=== PATIENT | female | born 1990 | race Caucasian/White ===

== ENCOUNTER → 2020-11-21 10:47 | Outpatient (CLI) | payer OTHER, SELFPAY ==
--- NOTE | ~2020-11-21 | US_ITS ---
EXAMINATION: US OB follow up DATE: 11/21/2020 11:09 INDICATION: Estimated size is less than expected for estimated gestational age during third [facility] . TECHNIQUE: Real-time ultrasound of the pelvis was performed. The interpreting radiologist was not pre sent for the study. COMPARISON: None. FINDINGS: There is a single living fetus in vertex presentation. The placenta is anterior and not low-lying. F etal heart rate is 134 beats per minute (bpm). The amniotic fluid index is 13.0 cm, which is normal (5th%-95%: 8.6-24.2 cm at 32 weeks estimated gestational age). The following biometric data were obtained: BPD: 8.2 cm -> 32 weeks 6 days Head circumference: 30.0 cm -> 33 weeks 1 days Abdominal circumference: 27.5 cm -> 31 weeks 4 days Femur length: 6.0 cm -> 31 weeks 3 days These measurements are concordant. Head circumference to abdominal circumference ratio: 1.09 (normal range 0.96-1.13). Estimated weight: 1831 g (+/-) 275 g. or 4 lbs. 1 oz. (+/-) 10 oz. IMPRESSION: 1. Single living fetus in vertex presentation with heart rate of 134 bpm. 2. Gestational age by ultrasound of 32 weeks 2 day(s) +/- 2 week(s) 2 day(s) with ultrasound estimate d date of delivery (GARCIA) of 01/14/2021. Estimated weight is 24th percentile by Hadlock criteria w hen 01/14/2021 is used as the GARCIA. Please correlate with clinical information or earlier ultrasounds fo r most accurate GARCIA. 3. Normal amniotic fluid index of 13.0 cm. Reviewed, dictated and finalized at location A. THERAPIST IMPRESSION: 1. Single living fetus in vertex presentation with heart rate of 134 bpm. 2. Gestational age by ultrasound of 32 weeks 2 day(s) +/- 2 week(s) 2 day(s) wi th ultrasound estimated date of delivery (GARCIA) of 01/14/2021. Estimated joshua ght is 24th percentile by Hadlock criteria when 01/14/2021 is used as the GARCIA. Pl ease correlate with clinical information or earlier ultrasounds for most accura te GARCIA. 3. Normal amniotic fluid index of 13.0 cm.
== END ==
PROVIDERS: Visit Provider Obstetrics & Gynecology
DX: O36.5930 Maternal care for other known or suspected poor fetal growth, third trimester, not applicable or unspecified (principal); Z3A.32 32 weeks gestation of pregnancy
CPT/HCPCS: 76816

== ENCOUNTER 2021-01-11 06:30 | Inpatient (IN) | payer OTHER, SELFPAY ==
[2021-01-11] VITALS (76 sets, daily range): BP systolic 80–120; BP diastolic 44–78; PULSE 54–141; RESP 14–16; TEMP 36.3–37; O2SAT 93–100; BMI 26.3
[2021-01-11 07:09] LABS: Basophils Percent Auto 0.3 % (0.2-1.2); Eosinophils Absolute Auto 0.1 K/mm3 (0-0.3); Eosinophils Percent Auto 1.1 % (0-4.4); Hematocrit 35.4 % (37.0-47.0); Immature Granulocyte Absolute 0.18 K/mm3 (0.00-0.031); Immature Granulocyte Percent A 1.6 % (0-0.5); Lymphocytes Absolute Auto 2.19 K/mm3 (0.9-3.2); Lymphocytes Percent Auto 19.6 % (18.3-44.2); Mean Corpuscular HGB Conc 33.9 g/dl (32-36); Mean Corpuscular Hemoglobin 30.8 pg (26-34); Mean Corpuscular Volume 90.8 fl (80-100); Mean Platelet Volume 10.4 fl (7.4-10.4); Monocytes Absolute Auto 0.9 K/mm3 (0.1-0.6); Monocytes Percent Auto 7.7 % (2.6-8.5); Neutrophils Absolute Auto 7.8 K/mm3 (1.3-6.7); Neutrophils Percent Auto 69.7 % (45.5-73.1); Platelet Count Result 178 k/mm3 (150-375); Red Cell Distribution Width 12.1 % (11.5-14.5); White Blood Count 11.2 K/mm3 (4.5-10.0)
[2021-01-11] MEDS: LACTATED RINGERS 1,000 ML 125 ML IV CONT (07:44)
[2021-01-11] MEDS: OXYTOCIN 30 UNITS/NS 500 ML 30 UNITS/500 ML BAG IV CONT (07:48)
--- NOTE | 2021-01-11 07:52 | LDADM ---
This patient, Elle Loyola, was admitted to Labor/Delivery/Recovery 105 on 01/11/21 at 06:30. Plans for labor, pain management and were discussed with patient. Patient/family oriented to hospital policies and general routines including ID bracelet, bed and alarms, visiting hours, pain management, procedures, bathroom and other care routines, personal items, smoking policy, room service/diet and guest tray routines, security routines, and visiting hours. Patient/Family are encouraged to report perceived risks to care and to ask questions if they do not understand what they are told or what they should do. See OBIX for further documentation.
--- NOTE | 2021-01-11 09:15 | WPDOBADMIT ---
Obstetrics - Admit Note Admission Note: record reviewed. No pertinent additions to the history and/or any subsequent changes in the physical findings that are not consistent with the expected course of the were found. Additions to the history and/or subsequent changes in the physical findings follow. None.Here for MIL. /-2 AROM with clear fluid. FHTs reactive
--- NOTE | 2021-01-11 10:41 | WPDANESEPP ---
Anes - Eval Pre Procedure Date/Time: 01/11/21 10:41 Pre Op Diagnosis: Induction of Labor Patient Data Age: 30 Gender: F Height: 5 ft 4 in Weight: 69.5 kg Last Vital Signs Temp 97.5 F L 01/11/21 10:29 Pulse 141 H 01/11/21 10:39 BP 80/44 L 01/11/21 10:39 Pulse Ox 99 01/11/21 10:38 Allergies Allergy/AdvReac Type Severity Reaction Status Date / Time No Known Allergies Allergy Unverified 12/01/18 12:38 Home Medications Medication Instructions Recorded Confirmed Type PNV cmb#95-ferrous fumarate-FA 1 tablet PO DAILY 12/26/20 01/11/21 History [] cholecalciferol (vitamin D3) 50 mcg PO DAILY 12/26/20 01/11/21 History [Vitamin D3] Laboratory Tests 01/11/21 01/11/21 01/11/21 07:00 07:00 07:00 WBC 11.2 K/mm3 H K/mm3 (4.5-10.0) RBC 3.90 M/mm3 L M/mm3 (4.2-5.4) Hgb 12.0 g/dL g/dL (12.0-15.0) Hct 35.4 % L % (37.0-47.0) MCV 90.8 fl fl (80-100) MCH 30.8 pg pg (26-34) MCHC 33.9 g/dl g/dl (32-36) RDW 12.1 % % (11.5-14.5) Plt Count 178 k/mm3 k/mm3 (150-375) MPV 10.4 fl fl (7.4-10.4) Immature Gran % (Auto) 1.6 % H % (0-0.5) Neut % (Auto) 69.7 % % (45.5-73.1) Lymph % (Auto) 19.6 % % (18.3-44.2) [place] % (Auto) 7.7 % % (2.6-8.5) Eos % (Auto) 1.1 % % (0-4.4) Baso % (Auto) 0.3 % % (0.2-1.2) Lymph # (Auto) 2.19 K/mm3 K/mm3 (0.9-3.2) [place] # (Auto) 0.9 K/mm3 H K/mm3 (0.1-0.6) Eos # (Auto) 0.1 K/mm3 K/mm3 (0-0.3) Baso # (Auto) 0.0 K/mm3 K/mm3 (0.0-0.1) Abs Immat Gran (auto) 0.18 K/mm3 H K/mm3 (0.00-0.031) Absolute Neuts (auto) 7.8 K/mm3 H K/mm3 (1.3-6.7) Absolute Nucleated RBC 0.0 K/mm3 K/mm3 (0.0-0.012) Nucleated RBC % 0.0 % % (0.0-0.2) RPR Pending Blood Type A Positive Antibody Screen Negative Patient hx anesthesia problems: none Family hx anesthesia problems: none [facility] Past Medical History Medical History (Updated 01/11/21 @ 10:41 by Aleida Spence CRNA) Pain during labor Surgical History Surgical History History of tonsillectomy 2003 Family History Family History Grandparent Cerebrovascular accident Cancer Glaucoma Social History Social History Smoking status: Never smoker Second hand tobacco smoke exposure: No Alcohol intake: current Substance use: never Gender identity (if verbalized by the patient): Female Spiritual care concerns: No Exam Day of Procedure 01/11/21 10:41
--- NOTE | 2021-01-11 10:42 | WPDANESEPP ---
Anes - Eval Pre Procedure Date/Time: 01/11/21 10:42 Pre Op Diagnosis: Induction of Labor Patient Data Age: 30 Gender: F Height: 5 ft 4 in Weight: 69.5 kg Last Vital Signs Temp 97.5 F L 01/11/21 10:29 Pulse 74 01/11/21 10:41 BP 109/66 01/11/21 10:41 Pulse Ox 99 01/11/21 10:38 Allergies Allergy/AdvReac Type Severity Reaction Status Date / Time No Known Allergies Allergy Unverified 12/01/18 12:38 Home Medications Medication Instructions Recorded Confirmed Type PNV cmb#95-ferrous fumarate-FA 1 tablet PO DAILY 12/26/20 01/11/21 History [] cholecalciferol (vitamin D3) 50 mcg PO DAILY 12/26/20 01/11/21 History [Vitamin D3] Laboratory Tests 01/11/21 01/11/21 01/11/21 07:00 07:00 07:00 WBC 11.2 K/mm3 H K/mm3 (4.5-10.0) RBC 3.90 M/mm3 L M/mm3 (4.2-5.4) Hgb 12.0 g/dL g/dL (12.0-15.0) Hct 35.4 % L % (37.0-47.0) MCV 90.8 fl fl (80-100) MCH 30.8 pg pg (26-34) MCHC 33.9 g/dl g/dl (32-36) RDW 12.1 % % (11.5-14.5) Plt Count 178 k/mm3 k/mm3 (150-375) MPV 10.4 fl fl (7.4-10.4) Immature Gran % (Auto) 1.6 % H % (0-0.5) Neut % (Auto) 69.7 % % (45.5-73.1) Lymph % (Auto) 19.6 % % (18.3-44.2) [place] % (Auto) 7.7 % % (2.6-8.5) Eos % (Auto) 1.1 % % (0-4.4) Baso % (Auto) 0.3 % % (0.2-1.2) Lymph # (Auto) 2.19 K/mm3 K/mm3 (0.9-3.2) [place] # (Auto) 0.9 K/mm3 H K/mm3 (0.1-0.6) Eos # (Auto) 0.1 K/mm3 K/mm3 (0-0.3) Baso # (Auto) 0.0 K/mm3 K/mm3 (0.0-0.1) Abs Immat Gran (auto) 0.18 K/mm3 H K/mm3 (0.00-0.031) Absolute Neuts (auto) 7.8 K/mm3 H K/mm3 (1.3-6.7) Absolute Nucleated RBC 0.0 K/mm3 K/mm3 (0.0-0.012) Nucleated RBC % 0.0 % % (0.0-0.2) RPR Pending Blood Type A Positive Antibody Screen Negative Patient hx anesthesia problems: none Family hx anesthesia problems: none [facility] Past Medical History Medical History (Updated 01/11/21 @ 10:41 by Aleida Spence CRNA) Pain during labor Surgical History Surgical History History of tonsillectomy 2003 Family History Family History Grandparent Cerebrovascular accident Cancer Glaucoma Social History Social History Smoking status: Never smoker Second hand tobacco smoke exposure: No Alcohol intake: current Substance use: never Gender identity (if verbalized by the patient): Female Spiritual care concerns: No Exam Day of Procedure 01/11/21 10:42
--- NOTE | 2021-01-11 13:21 | WPDOBADMIT ---
Obstetrics - Admit Note Admission Note: complete and pushing +2 station. record reviewed. No pertinent additions to the history and/or any subsequent changes in the physical findings that are not consistent with the expected course of the were found. Additions to the history and/or subsequent changes in the physical findings follow. None.
--- NOTE | 2021-01-11 13:22 | PM.OBPRVD ---
OB - Delivery Note Procedure Delivery date: 01/11/21 events: Labor Induction Intrapartal events: None Induction method: AROM and per pitocin protocol Delivery monitor: external FHT and external uterine Route of delivery: Laceration Description: Perineal - 2nd Degree Delivery repair: vicryl Specimen: Yes Quantitative Blood Loss (ml): 180 Anesthesia type: Epidural Disposition: floor Baby Date of : 01/11/21 Time of : 13:01 Weeks of gestation at delivery: 39 Infant gender: Female Weight (pounds): 8 Weight (ounces): 0 presentation: vertex position: Left Occiput Anterior Placenta delivery description: Spontaneous cord vessel description: 3 Vessels and Clamped/Cut score one minute: 9 score five minutes: 9
--- NOTE | 2021-01-11 13:23 | PM.DS ---
DS: Admitting Diagnosis Admitting Diagnosis Admitting Diagnosis: labor DS: Discharge Diagnosis Discharge Diagnosis (1) (normal spontaneous vaginal delivery): Code(s): O80 - Encounter for full-term uncomplicated delivery Status: Acute DS: Summary Time Spent with Patient Time attestation: Total time spent providing and/or coordinating discharge services: DS: Data Data Completed and Pending Labs on day of discharge: Labs from last 24 hours 01/11/21 01/11/21 01/11/21 07:00 07:00 07:00 WBC 11.2 H RBC 3.90 L Hgb 12.0 Hct 35.4 L MCV 90.8 MCH 30.8 MCHC 33.9 RDW 12.1 Plt Count 178 MPV 10.4 Immature Gran % (Auto) 1.6 H Neut % (Auto) 69.7 Lymph % (Auto) 19.6 [place] % (Auto) 7.7 Eos % (Auto) 1.1 Baso % (Auto) 0.3 Lymph # (Auto) 2.19 [place] # (Auto) 0.9 H Eos # (Auto) 0.1 Baso # (Auto) 0.0 Abs Immat Gran (auto) 0.18 H Absolute Neuts (auto) 7.8 H Absolute Nucleated RBC 0.0 Nucleated RBC % 0.0 RPR Pending Blood Type A Positive Antibody Screen Negative Discharge Plan Discharge Attending physician on discharge: Marty Garcia Consulting providers: Ubaldo Pa Discharging Clinician: Marty Garcia Patient Disposition: Home, Self-Care Activity: may shower and pelvic rest Diet: as tolerated Discharge Instructions: Education: Mom and Baby Guide Given to: Mother Follow-Up: Call your delivering provider's office for an appointment to be seen in: 4 Weeks Mom and baby should come to the [facility] for the follow-up appointment. Appointment Date/Time: Wednesday, January 13, 2021 at 10:00 am What to expect at your follow-up visit: Blood Pressure Check Physical Assessment Call [phone] if you are unable to keep your appointment time. BREAST CARE: * Wear a snug supportive bra. * For engorgement discomfort: Bottle Feeding: * May apply ice packs *No stimulation to breasts, do not try to pump EPISIOTOMY/PERINEAL CARE: * Until bleeding stops, use your devonte bottle after urinating * Change your pad frequently throughout the day * You may take sitz baths several times a day (fill your bathtub with warm water and soak for 20 minutes.) Do NOT bathe in the water * No tub baths until seen by your physician - You may shower ACTIVITY: * Rest as much as possible. * Do not exercise or lift anything heavier than your baby (such as laundry or other children.) * Avoid stairs or driving as much as possible. * Do not put anything into the vagina. No douching, tampons, or sexual activity until seen by physician. NOTIFY PHYSICIAN IF YOU HAVE ANY QUESTIONS OR IF ANY OF THE FOLLOWING SYMPTOMS OCCUR: * If your vaginal area becomes red, swollen, or more painful than what you have experienced in the hospital. * If your vaginal bleeding becomes foul smelling. * If your vaginal bleeding becomes more heavy than a period or if your bleeding changes from pink to bright red. However, you may pass an occasional walnut-sized clot once or twice for the first week . * If you experience a sharp, shooting pain in your calves. * If you discover a hard, reddened area on your breast or if you experience flu-like symptoms. DIET: * Eat regular, well-balanced meals. * Drink plenty of fluids daily. Stand Alone Forms: General Discharge Information Follow-up/Referrals: Marty Garcia MD [Physician] - Discharge Medications: Continued cholecalciferol (vitamin D3) [Vitamin D3] 50 mcg (2,000 unit) Capsule 50 mcg PO DAILY RF: 0 PNV cmb#95-ferrous fumarate-FA [] 28 mg iron- 800 mcg Tablet 1 tablet PO DAILY RF: 0 Date of admission: 01/11/21 06:30 Primary Care Provider: PHYSICIAN,[employer]OR Admitting Provider: Marty Garcia Attending physician on admission: Mahsa Pascual Condition: Stable
[2021-01-11] MEDS: OXYTOCIN 30 UNITS/NS 500 ML 30 UNITS/500 ML BAG 125 UNITS IV CONT (13:55)
[2021-01-11] MEDS: WITCH HAZEL 40 PADS 1 PAD TOPICAL (15:50)
[2021-01-11] MEDS: BENZOCAINE 20% AER SPR (*SP) 56 GM CAN 1 SPRAY TOPICAL (15:50)
[2021-01-11] MEDS: IBUPROFEN 600 MG TABLET PO (15:50)
[2021-01-12 04:40] VITALS: BP 95/62; PULSE 71; RESP 16; TEMP 36.2; O2SAT 100
[2021-01-12] MEDS: IBUPROFEN 600 MG TABLET PO (04:41)
[2021-01-12 05:06] LABS: Hematocrit 37.4 % (37.0-47.0); Hemoglobin 12.4 g/dL (12.0-15.0)
--- NOTE | 2021-01-12 07:21 | WPDANLDPN2 ---
Anes-Prog Note L&D Date/Time: 01/12/21 07:21 Comfortable throughout: labor and delivery Neuraxial method: epidural Epidural/Spinal procedure site: clean & non-tender Neuro status: Neuro function grossly intact. Cardiovascular status: normal Respiratory status: normal Airway patency: baseline Mental status: baseline Post-Op hydration status: normal Vital Signs: Last Vital Signs Temp 36.2 C L 01/12/21 04:40 Pulse 71 01/12/21 04:40 Resp 16 01/12/21 04:40 BP 95/62 L 01/12/21 04:40 Pulse Ox 100 01/12/21 04:40 Pain score (VAS): 10/18 I/O: Intake & Output 01/11/21 01/11/21 01/12/21 15:59 23:59 07:59 Intake Total 2300 Output Total 1743 Balance 557 Post-procedural complaints: none Patient feedback: Patient satisfied with anesthetic care.
--- NOTE | 2021-01-12 07:37 | PM.OBPNVD ---
OB - PN: Subj Subjective Date/time seen: 01/12/21 07:37 Patient comments: no complaints and pain well controlled baby status: doing well and nursing well OB - PN: Obj Data Labs CBC & Chem 7: 01/12/21 04:45 Labs: Laboratory Results - last 24 hr 01/11/21 01/12/21 07:00 04:45 Hgb 12.4 Hct 37.4 Blood Type A Positive Antibody Screen Negative OB - PN A/P Plan day: 1 Plan: routine care, discharge home, follow up 6 weeks and other (plans condoms) Time Spent With Patient Time: Total time spent is greater than 50% in coordination of care (as documented) at patient's floor/unit and/or counseling patient: Exam : Bimanual exam- vagina & uterus: other (Uterus firm, nt @U)
[2021-01-12 08:00] VITALS: BP 103/67; PULSE 73; RESP 16; TEMP 37.1; O2SAT 98
[2021-01-12] MEDS: DOCUSATE SODIUM 100 MG CAPSULE PO (10:12)
[2021-01-12] MEDS: BENZOCAINE 20% AER SPR (*SP) 56 GM CAN 1 SPRAY TOPICAL (10:12)
[2021-01-12] MEDS: WITCH HAZEL 40 PADS 1 PAD TOPICAL (10:12)
[2021-01-12] MEDS: MULTIVIT/MIN/PREN/FOL AC/IRON TABLET 1 TAB PO (10:12)
[2021-01-12 12:15] VITALS: BP 114/72; PULSE 66; RESP 16; TEMP 37.3; O2SAT 98
[2021-01-12 13:19] VITALS: PULSE 73; RESP 16; O2SAT 98
[2021-01-12 13:55] LABS: Rapid Plasma Reagin Non-Reactive (NonReactive)
[2021-01-13 10:19] VITALS: BP 103/66; PULSE 81; RESP 18; TEMP 36.9; O2SAT 99
--- NOTE | 2021-01-18 01:47 | P.DS_ITS ---
DS: Admitting Diagnosis Admitting Diagnosis Admitting Diagnosis: labor DS: Discharge Diagnosis Discharge Diagnosis (1) (normal spontaneous vaginal delivery): Code(s): O80 - Encounter for full-term uncomplicated delivery Status: Acute OB - DS: Summary OB Procedures : None OB Procedures Intrapartum: Spontaneous Vag Delivery OB Procedures: : None Peripartum Data Delivery Method: Natural Vaginal Laceration Description: Perineal - 2nd Degree complications: none Time Spent with Patient Time attestation: Total time spent providing and/or coordinating discharge services: Discharge Plan Discharge Attending physician on discharge: Marty Garcia Consulting providers: Ubaldo Pa Discharging Clinician: Marty Garcia Patient Disposition: Home, Self-Care Activity: may shower and pelvic rest Diet: as tolerated Discharge Instructions: Education: Mom and Baby Guide Given to: Mother Follow-Up: Call your delivering provider's office for an appointment to be seen in: 4 Weeks Mom and baby should come to the [place] [facility] for the follow-up appointment. Appointment Date/Time: Wednesday, January 13, 2021 at 10:00 am What to expect at your follow-up visit: Blood Pressure Check Physical Assessment Call [phone] if you are unable to keep your appointment time. BREAST CARE: * Wear a snug supportive bra. * For engorgement discomfort: Bottle Feeding: * May apply ice packs *No stimulation to breasts, do not try to pump EPISIOTOMY/PERINEAL CARE: * Until bleeding stops, use your devonte bottle after urinating * Change your pad frequently throughout the day * You may take sitz baths several times a day (fill your bathtub with warm water and soak for 20 minutes.) Do NOT bathe in the water * No tub baths until seen by your physician - You may shower ACTIVITY: * Rest as much as possible. * Do not exercise or lift anything heavier than your baby (such as laundry or other children.) * Avoid stairs or driving as much as possible. * Do not put anything into the vagina. No douching, tampons, or sexual activity until seen by physician. NOTIFY PHYSICIAN IF YOU HAVE ANY QUESTIONS OR IF ANY OF THE FOLLOWING SYMPTOMS OCCUR: * If your vaginal area becomes red, swollen, or more painful than what you have experienced in the hospital. * If your vaginal bleeding becomes foul smelling. * If your vaginal bleeding becomes more heavy than a period or if your bleeding changes from pink to bright red. However, you may pass an occasional walnut- sized clot once or twice for the first week . * If you experience a sharp, shooting pain in your calves. * If you discover a hard, reddened area on your breast or if you experience flu- like symptoms. DIET: * Eat regular, well-balanced meals. * Drink plenty of fluids daily. Stand Alone Forms: General Discharge Information Follow-up/Referrals: Marty Garcia MD [Physician] - Discharge Medications: Continued cholecalciferol (vitamin D3) [Vitamin D3] 50 mcg (2,000 unit) Capsule 50 mcg PO DAILY RF: 0 PNV cmb#95-ferrous fumarate-FA [] 28 mg iron- 800 mcg Tablet 1 tablet PO DAILY RF: 0 Date of admission: 01/11/21 06:30 Primary Care Provider: PHYSICIAN,TOWEL FOLDER Admitting Provider: Marty Garcia Attending physician on admission: Mahsa Pascual Condition: Stable
== END 2021-01-12 14:15 | disposition home or self-care (01) | DRG 807 ==
LOC: ANHLDR 13:24 → ANHOB2 01-12 13:26 → ANHLDR 01-13 13:11
PROVIDERS: Admitting Provider Obstetrics & Gynecology; Visit Provider Obstetrics & Gynecology Gynecology
DX: O70.1 Second degree perineal laceration during delivery (principal); Z37.0 Single live birth; Z3A.39 39 weeks gestation of pregnancy
CPT/HCPCS: 36415; 85014; 85018; 85025; 86592; 86850; 86900; 86901; A9270; J2590; J2795; J7120

== ENCOUNTER 2021-09-17 12:36 | Emergency (ER) | payer OTHER, SELFPAY ==
[2021-09-17 12:43] VITALS: BP 106/66; PULSE 84; RESP 18; TEMP 36.8; O2SAT 100
--- NOTE | 2021-09-17 12:46 | ED.GENADULT ---
HPI - General Adult General Chief complaint: Skin/Abscess/Foreign Body Stated complaint: left 3rd finger infected Source: patient Mode of arrival: ambulatory Limitations: no limitations History of Present Illness HPI narrative: Patient is a 30-year-old female who presents to the [facility] via POV for evaluation of a skin problem located on left third finger that has been present for approximately 2 weeks. She states, I get a splinter in it and it is just getting worse . She along with other family members have attempted to remove splinter although have been unsuccessful. She reports erythema and tenderness. No improvement Neosporin. Leaving it alone provides relief. Touching area increases tenderness. Related Data Allergies Allergy/AdvReac Type Severity Reaction Status Date / Time No Known Allergies Allergy Verified 09/17/21 12:46 Review of Systems Review of Systems: Denies injury. Pertinent negatives fever, chills, sweats, malaise, poor p.o. intake, change in appetite, headache, LOC, dizziness, streaking, drainage, numbness, tingling, loss of sensation, foreign body sensation, deformity, sob, chest pain, and heart palpitations/murmurs. [facility] Past Medical History Medical History (normal spontaneous vaginal delivery) Pain during labor Surgical History Surgical History History of tonsillectomy 2003 Family History Family History Grandparent Cerebrovascular accident Cancer Glaucoma Social History Social History Smoking status: Never smoker Second hand tobacco smoke exposure: No Alcohol intake: current Substance use: never Gender identity (if verbalized by the patient): Female Spiritual care concerns: No Comments I have reviewed and agree with the patient's past medical, surgical, social, and family hx as documented by the RN. There is no relevant family history pertinent to the presenting complaint. Exam Narrative: GENERAL: Well-appearing, well-nourished, and in no acute distress. HEAD: Normocephalic, atraumatic. No facial swelling appreciated. EYES: PERRLA and EOMI. No evidence of erythema, swelling, or drainage. ENT: Nares clear, no rhinorrhea or epistaxis.Mucous membranes moist and pink. Uvula is midline without erythema and swelling. No evidence of obstruction, petechial rash, cobblestoning, lesions, ulcers, erythema, swelling, exudates, peritonsillar abscess, tenting, or drooling. Breath odor and voice normal. NECK: Supple. No Lymphadenopathy or nuchal rigidity appreciated. CHEST: Bilateral lung lim are clear to auscultation. No respiratory distress. No evidence of cough or pleuritic cp upon examination. HEART: Regular rate and rhythm. No murmur, gallop, or rub heard. EXTREMITIES: Normal range of motion. No edema. SKIN: Warm, dry. No evidence of abscess, streaking, induration, abrasions/lacerations, petechiae, hematoma, contusion, drainage, or bleeding. Mild cellulitis noted to palmar aspect of the pad of left third digit NEURO: No focal deficits. Alert and oriented x3. SPECIAL OBSERVATIONS: Smiling. Laughing. No evidence of discomfort. Course Vital Signs Vital signs: Vital Signs Temperature 98.2 F 09/17/21 12:43 Pulse Rate 84 09/17/21 12:43 Respiratory Rate 18 09/17/21 12:43 Blood Pressure 106/66 09/17/21 12:43 Pulse Oximetry 100 09/17/21 12:43 Temperature 98.2 F 09/17/21 12:43 Pulse Rate 84 09/17/21 12:43 Respiratory Rate 18 09/17/21 12:43 Blood Pressure 106/66 09/17/21 12:43 Pulse Oximetry 100 09/17/21 12:43 Reviewed Medical Decision Making Differential Diagnosis Differential Diagnosis: Contact/allergic dermatitis, atopic dermatitis, psoriasis, cellulitis, tinea infection, parasite infect
== END 2021-09-17 13:00 | disposition home or self-care (01) ==
PROVIDERS: Emergency Provider Nurse Practitioner Family; PCP Internal Medicine
DX: L03.012 Cellulitis of left finger (principal)
CPT/HCPCS: 99213; G0463

== ENCOUNTER 2022-08-18 14:53 | Emergency (ER) | payer OTHER, SELFPAY ==
[2022-08-18 15:00] VITALS: BP 121/74; PULSE 76; RESP 16; TEMP 37; O2SAT 99
--- NOTE | 2022-08-18 15:02 | ED.EAR ---
HPI - Ear Problem General Chief complaint: Ear Stated complaint: ear pain Time Seen by Provider: 08/18/22 15:05 Source: patient Mode of arrival: ambulatory Limitations: no limitations History of Present Illness HPI Narrative: Ms. Loyola is a 31-year-old female patient presenting to clinic today with complaints of bilateral ear fullness/clogging. She reports that she had a swimmer's ear over the summer and is concerned that she may have an infection. Related Data Allergies Allergy/AdvReac Type Severity Reaction Status Date / Time No Known Allergies Allergy Verified 08/18/22 15:15 Review of Systems Review of Systems: Pertinent positives per HPI. Patient denies any fever, chills, rash, headache, visual changes, dizziness, cough, runny nose, sore throat, shortness of breath, chest pain, palpitations, nausea, vomiting, diarrhea, constipation, abdominal pain, or any urinary issues. PMFSH Past Medical History Medical History (normal spontaneous vaginal delivery) Pain during labor Surgical History Surgical History History of tonsillectomy 2003 Family History Family History Grandparent Cerebrovascular accident Cancer Glaucoma Social History Social History Smoking status: Never smoker Second hand tobacco smoke exposure: No Alcohol intake: current Substance use: never Gender identity (if verbalized by the patient): Female Spiritual care concerns: No Comments At the time of my signature, I reviewed and agree with the nursing past medical, surgical, social, and family history. There is no relevant family history pertinent to the patient complaint. Exam Narrative: General: Well-developed, well nourished, in no apparent distress Head: Normocephalic, atraumatic Eyes: Pupils equally round and reactive to light bilaterally, EOM intact, sclera and conjunctive clear, no discharge, lids normal Ears: bilateral cerumen impaction, ear irrigation performed bilaterally was a successful, TMs intact and clear, ear canals clear, no drainage, grossly hearing normal. Nose: Nares patent, no discharge, no inflammation, no sinus tenderness. Mouth: Oropharynx without lesions or masses, good dentition, MMM. Neck: Supple, trachea midline, no enlargement of anterior or posterior cervical nodes, no thyroid masses or goiter palpable. Cardio: Regular rate and rhythm, s1 and s2 normal, no murmur appreciated. Resp: Clear to auscultation bilaterally anteriorly and posteriorly, no rhonchi, rales, wheezing or rubs Course Course Emergency Course: Portions of this record may have been created with voice recognition software. Level of Care: Express Care Visit Vital Signs Vital signs: Vital Signs Temperature 37.0 C 08/18/22 15:00 Pulse Rate 76 08/18/22 15:00 Respiratory Rate 16 08/18/22 15:00 Blood Pressure 121/74 08/18/22 15:00 Pulse Oximetry 99 08/18/22 15:00 Oxygen Delivery Room Air 08/18/22 15:00 Temperature 37.0 C 08/18/22 15:00 Pulse Rate 76 08/18/22 15:00 Respiratory Rate 16 08/18/22 15:00 Blood Pressure 121/74 08/18/22 15:00 Pulse Oximetry 99 08/18/22 15:00 Oxygen Delivery Room Air 08/18/22 15:00 Vital signs reviewed Procedures Other Procedure Procedure 1: Other Procedure: Verbal consent obtained for bilateral ear irrigation. Bilateral ear canals was flushed with warm water and peroxide using elephant ear/ spray bottle and a lighted curette. bilateral ear canals were irrigated and cerumen impaction was successfully removed. Medical Decision Making MDM Narrative Medical decision making narrative: At the time of visit patient is resting comfortably on the exam table. She has bilateral cerumen impaction.
== END 2022-08-18 15:21 | disposition home or self-care (01) ==
PROVIDERS: Emergency Provider Nurse Practitioner Family; PCP Internal Medicine
DX: H61.23 Impacted cerumen, bilateral (principal)
CPT/HCPCS: 69209; 99212; G0463

== ENCOUNTER 2025-07-24 15:17 | Outpatient (CLI) | payer OTHER, SELFPAY ==
--- NOTE | ~2025-07-24 | US_ITS ---
Clinical history:Thyroid nodule. Palpable lump along the left side of the neck. EXAM:Ultrasound thyroid TECHNIQUE:Multiple static grayscale images and color Doppler images were obtained of the thyroid gland Comparisons:None available FINDINGS: Right thyroid lobe measures 4.8 x 1.3 x 2.0 cm and is homogeneous. Normal vascularity. No nodules identified. Left thyroid lobe measures 4.8 x 1.3 x 1.9 cm. Normal vascularity. No nodules identified. This cyst measures 0.5 cm and is homogeneous. No nodules identified. There is a 3 x 8 x 2 mm hypoechoic mass which is wider than tall in an area of palpable concern about the left ear. IMPRESSION: 1. There is an indeterminate 8 mm mass about the left ear in an area of palpable concern. A CT of the soft tissues of the neck with contrast is recommended for further assessment. 2. Unremarkable thyroid ultrasound. Reviewed, dictated and finalized at location Q. IMPRESSION: 1. There is an indeterminate 8 mm mass about the left ear in an area of palpabl e concern. A CT of the soft tissues of the neck with contrast is recommended fo r further assessment. 2. Unremarkable thyroid ultrasound.
== END 2025-07-24 15:18 | disposition home or self-care (01) ==
PROVIDERS: PCP Internal Medicine; Visit Provider Obstetrics & Gynecology Gynecology
DX: E04.1 Nontoxic single thyroid nodule (principal)
CPT/HCPCS: 76536

== ENCOUNTER 2025-08-21 10:28 | Outpatient (CLI) | payer OTHER, SELFPAY ==
--- NOTE | ~2025-08-21 | CT_ITS ---
EXAM/PROCEDURE: CT soft tissue neck w con HISTORY: Localized swelling, mass on left side of neck COMPARISON: None available. TECHNIQUE: IV contrast-enhanced soft tissue neck CT performed FINDINGS: No suspicious lesion or mass identified. Scattered nonpathologic sized bilateral lymph nodes are seen in the jugulodigastric, posterior triangle and occipital regions. Slight infiltrative changes in the postauricular region on the left side but no drainable fluid collection or mass. No acute process seen in the visualized intracranial contents or upper chest. Thyroid appears normal and vascular structures are patent. Bones intact. Glands appear symmetric and within normal limits. Parapharyngeal retropharyngeal and carotid spaces appear symmetric. Fossae of Rosenmuller are symmetric. IMPRESSION: Minimal soft tissue fullness posterior to the left ear but no discrete lesion, mass or abscess. Other findings as above. Reviewed, dictated and finalized at location A. [employer] IMPRESSION: Minimal soft tissue fullness posterior to the left ear but no discr ete lesion, mass or abscess. Other findings as above.
== END 2025-08-21 10:29 | disposition home or self-care (01) ==
LOC: MICIMG 10:34
DX: R22.1 Localized swelling, mass and lump, neck (principal)
CPT/HCPCS: 70491; Q9967